=== PATIENT | female | born 1965 | race Caucasian/White ===

== ENCOUNTER 2018-09-03 08:07 | Day surgery (SDC) | payer MEDICAID ==
[~2018-09-03] VITALS: Ht 162.6 cm; Wt 68.0 kg
[~2018-09-03 08:07] MED LIST: ALPR-624 PO; FERR325T28 PO; GLIM1TAB PO; LANTUS SQ; METF-438 PO; SERT100T PO; SIMV40TA PO
[2018-09-03] MEDS ORDERED: albumin (human) 25% 100 ML IV solution IV PRN (08:30)
[2018-09-03] MEDS ORDERED: normal saline 1000ml 1,000 ML IV PRN (08:30)
[2018-09-03 08:47] VITALS: BP 126/77
[2018-09-03] MEDS ORDERED: NAPR220T67 PO (08:51)
[2018-09-03] MEDS ORDERED: PROC-8 (08:53)
[2018-09-03] MEDS ORDERED: OLAN5TAB29 PO (08:55)
[2018-09-03] MEDS ORDERED: ACET-812 PO (09:03)
[2018-09-03 09:09] LABS: BASOPHILS % (AUTO) 0.1 % (0-1); EOSINOPHILS # (AUTO) 0.2 X10'3 (0-0.9); EOSINOPHILS % (AUTO) 2.3 % (0-6); HEMATOCRIT 33.6 % (35.0-45.0); HEMOGLOBIN 11.1 g/dl (12.0-16.0); LYMPHOCYTES # (AUTO) 1.6 X10'3 (1.1-4.8); LYMPHOCYTES % (AUTO) 19.5 % (21-51); MEAN CORPUSCULAR HEMOGLOBIN 28.3 PG (27.0-31.0); MEAN CORPUSCULAR VOLUME 85.5 FL (78-98); MEAN PLATELET VOLUME 6.9 FL (7.4-10.4); MONOCYTES # (AUTO) 0.6 X10'3 (0-0.9); MONOCYTES % (AUTO) 6.6 % (2-12); NEUTROPHILS % (AUTO) 71.5 % (42-75); PLATELET COUNT 486 X10'3 (140-440); RED BLOOD COUNT 3.93 X10'6 (4.20-5.60); RED CELL DISTRIBUTION WIDTH 16.5 % (11.5-14.5); WHITE BLOOD COUNT 8.3 X10'3 (4.5-11.0)
[2018-09-03 09:10] LABS: ALBUMIN 3.5 G/DL (3.4-5.0); ANION GAP 11 (8-16); BLOOD UREA NITROGEN 12 MG/DL (7-18); BUN/CREATININE RATIO 20.7 (6.6-38.0); CALCIUM 9.4 MG/DL (8.5-10.1); CHLORIDE 99 MMOL/L (99-107); CREATININE 0.58 MG/DL (0.40-0.90); GLUCOSE 143 MG/DL (70-104); POTASSIUM 4.5 MMOL/L (3.5-5.1); SODIUM 135 MMOL/L (135-145); TOTAL CARBON DIOXIDE 25.3 MMOL/L (24-32); eGFR > 90 ML/MIN
[2018-09-03] MEDS ORDERED: midazolam 2 mg/2 ml injection IV PRN (09:40)
[2018-09-03] MEDS ORDERED: heparin sodium, porcine/PF 100unit/ml 5ML syringe ICATH ONE (09:40)
[2018-09-03] MEDS ORDERED: fentaNYL/PF 50MCG/1 ML 2ML syringe IV PRN (09:40)
[2018-09-03] MEDS ORDERED: heparin sodium, porcine/PF 100unit/ml 5ML syringe ONE (10:02)
[2018-09-03] MEDS ORDERED: midazolam 2 mg/2 ml injection ONE (10:02)
[2018-09-03] MEDS ORDERED: fentaNYL/PF 50MCG/1 ML 2ML syringe ONE (10:02)
[2018-09-03 11:00] VITALS: BP 141/86
[2018-09-03 11:15] VITALS: BP 142/82
[2018-09-03 11:30] VITALS: BP 139/84
[2018-09-03 11:45] VITALS: BP 129/87
== END 2018-09-03 12:12 | disposition home or self-care (01) ==
LOC: SSTAY O 08:07
PROVIDERS: ATTEND Radiology Diagnostic Radiology
DX: C50.911 Malignant neoplasm of unspecified site of right female breast (principal); I10 Essential (primary) hypertension; D64.9 Anemia, unspecified; K21.9 Gastro-esophageal reflux disease without esophagitis; E11.9 Type 2 diabetes mellitus without complications; Z85.118 Personal history of other malignant neoplasm of bronchus and lung; Z85.3 Personal history of malignant neoplasm of breast; Z98.890 Other specified postprocedural states
CPT/HCPCS: 36415; 36561; 76937; 77001; 80048; 82948; 85025; A6219; C1769; C1788; C1894; J1642; J2250; J3010; J7030; A4620